=== PATIENT | female | born 1975 | race Caucasian/White ===

== ENCOUNTER 2023-12-20 08:06 | Outpatient (CLI) | payer OTHER, SELFPAY ==
--- NOTE | ~2023-12-20 | MM_ITS ---
EXAMINATION: MM screening yareli BI w javier HISTORY: Screening mammogram TECHNIQUE: Craniocaudal and mediolateral oblique 3-D tomosynthesis images were obtained and synthetic 2-D images were generated. CAD analysis was submitted and interpreted. COMPARISON: No prior mammogram is available for comparison at this institution. BREAST PARENCHYMAL COMPOSITION:Dense: The breasts are heterogeneously dense, which may obscure small masses. FINDINGS: No suspicious mass, calcification, or architectural distortion are identified in either hira ast to suggest malignancy. There has been no suspicious interval change. IMPRESSION: No mammographic evidence of malignancy. Recommend routine screening mammography in one year. BI-RADS Category 1: Negative Reviewed, dictated and finalized at location .
== END 2023-12-20 08:07 | disposition home or self-care (01) ==
LOC: CHSIMG 08:10
PROVIDERS: PCP Family Medicine; Visit Provider Family Medicine
DX: Z12.31 Encounter for screening mammogram for malignant neoplasm of breast (principal)
CPT/HCPCS: 77063; 77067

== ENCOUNTER 2024-03-09 05:46 | Emergency (ER) | payer OTHER, SELFPAY ==
--- NOTE | ~2024-03-09 | CT_ITS ---
Non-contrast CT scan of the Abdomen and Pelvis Clinical indication: Left flank pain Technique: 2.5 mm axial scans were obtained through the abdomen and pelvis without intravenous or or al contrast. Dose reduction technique was used on this scan by utilizing automated exposure control a nd iterative reconstruction technique. The dose-length product (DLP) was 407.47 mGy-cm. Findings: Images through the lung bases reveal no abnormalities. There is a 2 mm stone either at the left UVJ or just within the urinary bladder. There is mild left h ydroureteronephrosis. No other radiopaque stones identified. No right hydronephrosis. The liver, spleen, pancreas, gallbladder, and adrenals appear normal. There is no aortic aneurysm. There is no evidence of bowel obstruction. Images through the pelvis were performed. There is no evidence of ascites or lymphadenopathy. Urinary bladder otherwise unremarkable. IUD in place. No adnexal mass evident. Impression: 2 mm left UVJ stone, versus stone just within the urinary bladder, with mild left hydroureteronephros is. IUD in place. Reviewed, dictated and finalized at location M. Impression: 2 mm left UVJ stone, versus stone just within the urinary bladder, with mild le ft hydroureteronephrosis. IUD in place.
[2024-03-09 05:49] VITALS: BP 140/75; PULSE 81; RESP 18; TEMP 36.3; O2SAT 98
--- NOTE | 2024-03-09 05:59 | ED.GENADULT ---
HPI - General Adult General Chief complaint: Urogenital-Female Stated complaint: back pain Source: patient Mode of arrival: ambulatory Limitations: no limitations History of Present Illness HPI narrative: 48-year-old white female complains of left flank pain radiating to her left lower quadrant she had for about 45 minutes on 03/07 during the night and then it returned again 3:00 a.m. this morning waking her up from sleep. She feels like she has the need to void. Denies any dysuria. She has a difficulty getting comfortable. She rates her pain as a 7/10. She has no history of kidney stones but her brother had kidney stones in the past. She has had ruptured ovarian cyst but never had back pain is associated with this. She denied pain elsewhere or shortness of breath fever cough runny nose sore throat rash or itching bleeding or bruising problems eating or drinking stooling swelling lumps or bumps dizziness or lightheadedness or any other complaints. Related Data Home Medications Medication Instructions Recorded Confirmed cyclobenzaprine 5 mg tablet 5 mg PO PRN 03/09/24 03/09/24 estradiol 0.05 mg/24 hr semiweekly 0.5 mg transdermal 2XW 03/09/24 03/09/24 transdermal patch meloxicam 15 mg tablet 15 mg PO PRN 03/09/24 03/09/24 trazodone 150 mg tablet 150 mg PO HS 03/09/24 03/09/24 Allergies Allergy/AdvReac Type Severity Reaction Status Date / Time No Known Allergies Allergy Verified 03/09/24 05:53 Review of Systems Review of Systems: All systems reviewed & are unremarkable except as noted in HPI and below [facility] Comments History ovarian ruptured cyst and insomnia andchronic back pain. Family history of kidney stones in her brother. Exam Narrative: White female patient with moderate distress.? Head normocephalic, atraumatic.? Eyes conjunctiva pink sclera nonicteric.? Extraocular movements are intact.? Ears externally normal.? Oropharynx is clear with moist mucous membranes without exudates.? Neck is supple nontender no lymphadenopathy.? Back is nontender.? no CVA tenderness. Lungs are clear.? Heart is regular rate and rhythm without murmurs gallops or rubs.? Abdomen is soft , no hepatosplenomegaly or masses no CVA tenderness or no abdominal bruits.? tenderness to left lower quadrant with rebound tenderness referred to left lower quadrant. She also has suprapubic tenderness. Extremities no cyanosis clubbing or edema.? Skin is warm and dry without rashes or lesions.? Neurological patient is alert and oriented x4.? Motor and sensory grossly intact.? Gait is normal. Course Vital Signs Vital signs: Vital Signs Temperature 36.3 C L 03/09/24 05:49 Pulse Rate 81 03/09/24 05:49 Respiratory Rate 18 03/09/24 05:49 Blood Pressure 140/75 03/09/24 05:49 Pulse Oximetry 98 03/09/24 05:49 Oxygen Delivery Room Air 03/09/24 05:49 Temperature 36.7 C 03/09/24 07:11 Pulse Rate 72 03/09/24 07:11 Respiratory Rate 17 03/09/24 07:11 Blood Pressure 107/68 03/09/24 07:11 Pulse Oximetry 94 03/09/24 07:11 Oxygen Delivery Room Air 03/09/24 07:11 Medical Decision Making [facility] Narrative Medical decision making narrative: ? Patient placed in room:1 ? History and physical was performed. CT abdomen and pelvis without contrast showed per radiologist:2 mm left UVJ stone, versus stone just within the urinary bladder, with mild left hydroureteronephrosis. Urinalysis positive for hematuria with 21-50 rbc's. CMP showed a creatinine 1.2 with BUN of 19 GFR 48 Osmo 297 otherwise was normal CBC was normal. Independent Historian: External Source Review: Differential Dx includes but not limited to: kidney stone diverticulitis ruptured ovarian cyst Medications were Reviewed: home meds reviewed Medications given: Toradol 30 mg IV Zofran 4 mg IV Independently Interpreted by me: labs independently interpreted by me. Shared decision Making: Evaluation was discussed with
[2024-03-09 06:00] LABS: Add Urine Microscopic? YES; Appearance Urine Clear (Clear); Bilirubin Urine Negative (Negative); Blood Urine 3+ (Negative); Color Urine Light Yellow (Yellow); Glucose Urine UA Negative (Negative); Ketones Urine Negative (Negative); Leukocyte Esterase Ur Negative LEU/UL (Negative); Nitrate Urine Negative (Negative); Protein Urine Negative (Negative); Specific Grav Ur 1.025 (1.010-1.020); Urobilinogen Urine 0.2 mg/dL (0.2-1.0); pH Urine 6.5 (5.0-8.0)
[2024-03-09 06:05] LABS: Bacteria Urine Trace /hpf; RBC Urine 21-50 /hpf (0-2); Squamous Epithelial Cell Urine Rare /hpf (Few); WBC Urine None seen /hpf (0-3)
[2024-03-09] MEDS: KETOROLAC 30 MG/ML VIAL (*BKC) IV PUSH (06:07)
[2024-03-09 06:09] LABS: Hematocrit 36.8 % (35.0-49.0); Hemoglobin 12.4 g/dL (12.0-15.0); Mean Corpuscular HGB Conc 33.7 g/dL (32-36); Mean Corpuscular Hemoglobin 29.2 pg (27.0-31.0); Mean Corpuscular Volume 86.8 fL (78.0-102.0); Mean Platelet Volume 8.3 fl (9.2-11.8); Platelet Count Result 178 K/mm3 (150-420); Red Blood Count 4.24 M/mm3 (4.20-5.40); Red Cell Distribution Width 12.8 % (11.6-14.4); White Blood Count 7.7 K/mm3 (4.8-10.8)
[2024-03-09 06:24] LABS: Alanine Aminotransferase 15 U/L (14-59); Albumin Level 3.8 g/dL (3.4-5.0); Alkaline Phosphatase 67 U/L (46-116); Anion Gap 6 mmol/L (4-12); Aspartate Amino Transferase 21 U/L (15-37); Bilirubin,Total 0.4 mg/dL (0.00-1.00); Blood Urea Nitrogen 19 mg/dL (7-18); Calcium 9.2 mg/dL (8.5-10.1); Carbon Dioxide 32 mmol/L (21-32); Chloride 104 mmol/L (98-108); Estimated CRCL calculation 45 ml/min; Estimated Glomerular Filt Rate 48; Glucose 115 mg/dL (70-99); Osmolality Calculated 297 mOsm/kg (285-295); Potassium 3.8 mmol/L (3.5-5.1); Sodium 142 mmol/L (136-145); Total Protein 6.9 g/dL (6.4-8.2)
[2024-03-09] MEDS: ONDANSETRON INJ 4 MG/2 ML VIAL IV PUSH (06:59)
[2024-03-09 07:11] VITALS: BP 107/68; PULSE 72; RESP 17; TEMP 36.7; O2SAT 94
--- NOTE | 2024-03-11 12:35 | PC.NURSE ---
FINAL URINE CULTURE NO GROWTH
== END 2024-03-09 07:11 | disposition home or self-care (01) ==
PROVIDERS: Emergency Provider Emergency Medicine; PCP Family Medicine
DX: N20.1 Calculus of ureter (principal); Z79.1 Long term (current) use of non-steroidal anti-inflammatories (NSAID); Z79.899 Other long term (current) drug therapy
CPT/HCPCS: 36415; 74176; 80053; 81001; 85027; 87086; 96374; 96375; 99284; J1885; J2405

== ENCOUNTER 2025-04-06 14:22 | Outpatient (CLI) | payer OTHER, SELFPAY ==
--- NOTE | ~2025-04-06 | XR_ITS ---
EXAMINATION: XR shoulder RT min 2V, 04/06/2025 14:35 CDT HISTORY: R SHOULDER PAIN / 3 VIEWS COMPARISON: No comparisons available. Findings: No acute fracture or malalignment. No significant degenerative changes. Soft tissues unremarkable. Impression: No acute fracture or malalignment. Reviewed, dictated and finalized at location P. Impression: No acute fracture or malalignment.
--- OUTSIDE RECORDS SUMMARY | 2025-04-06 16:21 | XMS_ITS | Clinical Summary ---
Author Organization [facility] Address [address] [place] [address] Phone Care Team Providers Care Metal Forger'S Assistant Name Role Phone Provider, Unknown Primary Care Provider Unavaila ble Medications zolpidem (Ambien) 10 MG Tablet Take 10 mg by mouth nightly as needed for Sleep. Active Active Problems No known active problems Social History Tobacco Use Types Packs/Day Years Used Date Smoking Tobacco: Never Assessed Comments Unknown Sex and Gender Information Value Date Recorded Sex Assigned at Not on file Legal Sex Female 12:07 AM CDT Gender Identity Not on file Sexual Orientation Not on file Plan of Treatment Health Maintenance Due Date Last Done Comments Hepatitis C Virus (HCV) Screening 1973 TdaP Immunization 1973 Hepatitis B Immunization (1 of 3 - 19+ 3-dose series) 1992 Pap Smear 1994 Cervical Cancer Screening (CCS) 2003 HPV/Cotest 2003 Cologuard 2018 Colonoscopy 2018 Colorectal Cancer Screening 2018 Immunochemical Fecal Occult Blood 2018 Pneumococcal Immunization (5 0+ years) (1 of 1 - PCV) 2023 Zoster Immunization (1 of 2) 2023 Influenza Immunization (#1) 2025 SARS-COV-2 Immunization ( - 2023- season) 2025 Respiratory Syncytial Virus (RSV) Immunization (Adult) (1 - 1-dose 75+ series) 2048 Human Papillomavirus (HPV) Immunization Aged Out No longer eligible b ased on patient's age to complete this topic Meningococcal Immunization (ACWY) Aged Out No longer eligible based on patient's age to complete this topic Rotavirus Immunization Aged Out No lo nger eligible based on patient's age to complete this topic Care Teams Metal Forger'S Assistant Relationship Specialty Start Date End Date Provider, Unknown UNKNOWN PCP - General 03/07/20
--- OUTSIDE RECORDS SUMMARY | 2025-04-06 16:21 | XMS_ITS | Clinical Summary ---
Author Organization [facility]ie [facility] [address] Address [address] [place] [address] [address] [place] [address] Care Team Providers Care Foundation Maker Name Role Phone Unavailable Primary Care Provider Unavailabl e Medications zolpidem (AMBIEN) 10 mg tablet Take 10 mg by mouth. Active cyclobenzaprine (FLEXERIL) 5 mg Tablet Take 5 mg by mouth 3 times daily as needed for Spasm. 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 Gender Identity Not on file Sexual Orientation Not on file Last Filed Vital Signs Vital Sign Reading Time Taken Comments Blood Pressure 110/50 11/12/2022 8:22 AM CDT Pulse 118 11/12/2022 8:22 AM CDT Temperature 37 C (98.6 F) 11/12/2022 8:22 AM CDT Respiratory Rate - - Oxygen Saturation 99% 11/12/2022 8:22 AM CDT Inhaled Oxygen Concentration - - Weight 64.5 kg (142 lb 3.2 oz) 11/12/2022 8:22 A M CDT Height 165.1 cm (5' 5) 11/12/2022 8:22 AM CDT Body Mass Index 23.66 11/12/2022 8:22 AM CDT Plan of Treatment Health Maintenance Due Date Last Done Comments DTAP/TDAP/TD VACCINES (1 - Tdap) 1992 HEPATITIS B VACCINES (1 of 3 - 19+ 3-dose series) 06/25 HPV/Cotest (21-29) 1994 CERVICAL CANCER SCREENING 2003 HPV/Cotest (30-65) 2003 PAP SMEAR 2003 BREAST CANCER SCREENING 2013 COLORECTAL SCREENING 2018 Colorectal Cancer Screening 2018 FIT-DNA Q 3 years 2018 FIT/FOBT Q 1 year 2018 Flex Sig/CT Colonography Q 5 years 2018 ZOSTER VACCINE (1 of 2) 2023 INFLUENZA VACCINE (#1) [address] [place] [id number] [employer] CHOICE POS II
== END 2025-04-06 14:23 | disposition home or self-care (01) ==
PROVIDERS: PCP Family Medicine; Visit Provider Family Medicine
DX: M25.511 Pain in right shoulder (principal)
CPT/HCPCS: 73030